=== PATIENT | female | born 1990 | race Caucasian/White ===

== ENCOUNTER 2017-02-23 09:12 | Emergency (ER) | payer SELFPAY ==
[2017-02-23 10:05] VITALS: BP 138/93
--- NOTE | 2017-02-23 10:28 | UC ---
Skin Complaint HPI - HPI Summary HPI Summary: 26 y/o female presents to the urgent care c/o hives around her body since yesterday. She doesn't recall eating anything different or being outside. She took Benadryl last night, but this morning she woke up with more hives, specially in the face. Pt denies SOB, difficulty swallowing, SOB, N/V/D, abdominal pain, chest pain. Pt is allergic to latex, PCN, sea food, but she hasn't been expose to that in the past 3 days. - History of Current Complaint Chief Complaint: UCSkin Time Seen by Provider: 02/23/17 10:20 Stated Complaint: SKIN COMPLAINT Hx Obtained From: Patient Hx Last Menstrual Period: has mirena ?: No Onset/Duration: Gradual Onset, Lasting Days, Still Present Skin Exposure Onset/Duration: Days Ago Timing: Constant Onset Severity: Mild Current Severity: Moderate Pain Intensity: 0 Pain Scale Used: 0-10 Numeric Location: Diffuse - face, neck upper chest, both arms and abdomen Character: Swelling, Pruritus, Hives Aggravating: Touch Alleviating: OTC Meds Associated Signs & Symptoms: Positive: Negative. Negative: Nausea, Vomiting, Numbness, Difficulty Breathing, Fever, Hoarseness, Throat Tightening Related History: Other: - unknown - Allergy/Home Medications Allergies/Adverse Reactions: Allergies Allergy/AdvReac Type Severity Reaction Status Date / Time Latex Allergy Rash Verified 02/23/17 09:43 Penicillin G Allergy Vomiting Verified 02/23/17 09:43 Ibuprofen AdvReac Vomiting Verified 02/23/17 09:43 Home Medications: Home Medications diPHENhydraMINE PO* [Benadryl PO 50 MG CAP*] 50 mg PO Q6H PRN 02/23/17 [History Confirmed 02/23/17] Review of Systems Constitutional: Negative Skin: Rash - Hives in B/L arms, Neck, upper chest, Eyes: Negative ENT: Negative Respiratory: Negative Cardiovascular: Negative Gastrointestinal: Negative Genitourinary: Negative Motor: Negative Neurovascular: Negative Musculoskeletal: Negative Neurological: Negative Psychological: Negative All Other Systems Reviewed And Are Negative: Yes PMH/Surg Hx/FS Hx/Imm Hx Previously Healthy: Yes Respiratory History: Asthma Other History Of: Negative For: HIV, Hepatitis B, Hepatitis C - Surgical History Surgical History: Yes Surgery Procedure, Year, and Place: wisdom teeth - Family History Known Family History: Positive: Cardiac Disease, Hypertension, Diabetes, Other - denies h allergies - Social History Occupation: Employed Full-time Lives: With Family Alcohol Use: Occasionally Substance Use Type: None Smoking Status (MU): Light Every Day Tobacco Smoker Type: Cigarettes - Immunization History Most Recent Influenza Vaccination: NOT THIS SEASON Physical Exam Triage Information Reviewed: Yes Appearance: Well-Appearing, No Pain Distress, Well-Nourished, Obese Vital Signs: Initial Vital Signs Temp 98.3 F 02/23/17 09:40 Pulse 84 02/23/17 09:40 Resp 16 02/23/17 09:40 BP 138/93 02/23/17 09:40 Pulse Ox 100 02/23/17 09:40 Vital Signs Reviewed: Yes Eye Exam: Normal Eyes: Positive: Conjunctiva Clear - PERRLA, EOMI ENT Exam: Normal ENT: Positive: Normal ENT inspection, Hearing grossly normal, Pharynx normal, TMs normal. Negative: Tonsillar swelling Dental Exam: Normal Neck exam: Normal Neck: Positive: Supple, Nontender, No Lymphadenopathy Respiratory Exam: Normal Respiratory: Positive: Chest non-tender, Lungs clear, Normal breath sounds, No respiratory distress Cardiovascular Exam: Normal Cardiovascular: Positive: RRR, No Murmur, Pulses Normal, Brisk Capillary Refill Abdominal Exam: Normal Abdomen Description: Positive: Nontender, No Organomegaly, Soft. Negative: CVA Tenderness (R), CVA Tenderness (L) Bowel Sounds: Positive: Present Musculoskeletal Exam: Normal Musculoskeletal: Positive: Strength Intact, ROM Intact, No Edema Neurological Exam: Normal Psychological Exam: Normal Skin: Positive: rashes - Positive B/L arms with multiple erythematous patches rasied and non tender to palpation, similar hives in the neck, in the face aorund the forehead Course/Dx - Course Course Of Treatment: 26 y/o female presents to the urgent care c/o hives around her body since yesterday. She doesn't recall eating anything different or being outside. She took Benadryl last night, but this morning she woke up with more hives, specially in the face. Pt denies SOB, difficulty swallowing, SOB, N/V/D, abdominal pain, chest pain. Pt is allergic to latex, PCN, sea food, but she hasn't been expose to that in the past 3 days.Hx obtained. Pt with an allergic reaction to unknown source. Pt given Prednisone 60mg PO and Benadryl IM inj. to alleviate symptoms. Rx Prednisone taper dose, benadryl PO, Ranitidine PO to protect GI. Calamide lotion to alleviate symptoms. Advised if not improvement to returnt to the urgetn care or f/u with PCP. Pt understood and agreed - Differential Diagnoses - Skin Complaint Differential Diagnoses: Allergic Reaction, Contact Dermatitis, Drug Rash, Local Allergic Reaction, Tick Born Illness, Urticaria - Diagnoses Provider Diagnoses: 1- allergic reaction to unknown source Discharge - Discharge Plan Condition: Stable Disposition: HOME Prescriptions: Calamine/Pramoxine LOTION* [Caladryl LOTION*] 1 applic .SEE ORDER TID #1 btl Ranitidine TAB (NF) [Zantac TAB (NF)] 150 mg PO BID #10 tab diPHENhydraMINE PO* [Benadryl PO 25 MG TAB*] 25 mg PO Q6H PRN #20 tab PRN Reason: Pruritis predniSONE TAB* [Deltasone TAB*] 20 mg PO DAILY #8 tab Patient Education Materials: Acute Rash (ED) Forms: *Work Release Referrals: SAJI Sánchez [Primary Care Provider] - 3 Days Additional Instructions: 1- Please take and apply medications as directed. 2- If you feel SOB, difficulty swallowing please go immediately to the ER for further treatment 3- If rash not improving in 2-3 days please return to the urgent care or f/u with your PCP
[2017-02-23] MEDS ORDERED: diPHENhydraMINE PO* 25 MG PO ONE (10:29)
[2017-02-23] MEDS ORDERED: predniSONE TAB* 20 MG PO ONE (10:29)
== END 2017-02-23 10:45 | disposition home or self-care (01) ==
LOC: UCCORT 09:12
DX: L50.9 Urticaria, unspecified (principal); F17.210 Nicotine dependence, cigarettes, uncomplicated; Z88.6 Allergy status to analgesic agent; Z88.0 Allergy status to penicillin; Z91.040 Latex allergy status
CPT/HCPCS: 99212; A9270-GY; G0463; J7512

== ENCOUNTER 2017-05-13 09:25 | Emergency (ER) | payer OTHER ==
[2017-05-13 09:44] VITALS: BP 143/85
--- NOTE | 2017-05-13 09:58 | UC ---
Throat Pain/Nasal Jeremiah HPI - HPI Summary HPI Summary: SORE THROAT X 3 DAYS + NASAL CONGESTION , COUGH , PND FEVER THIS MORNING - History of Current Complaint Chief Complaint: UCRespiratory Stated Complaint: FEVER COUGH SORE THROAT Time Seen by Provider: 05/13/17 09:53 Hx Obtained From: Patient Hx Last Menstrual Period: unknown, mirena ?: No Onset/Duration: Gradual Onset, Lasting Days - 3, Still Present Severity: Moderate Cough: Nonproductive Associated Signs & Symptoms: Positive: Nasal Discharge. Negative: Dysphagia, FB Sensation, Drooling, Wheezing, Hoarseness, Sinus Discomfort, Fever - Allergies/Home Medications Allergies/Adverse Reactions: Allergies Allergy/AdvReac Type Severity Reaction Status Date / Time Latex Allergy Rash Verified 05/13/17 09:44 Penicillin G Allergy Vomiting Verified 05/13/17 09:44 Ibuprofen AdvReac Vomiting Verified 05/13/17 09:44 PMH/Surg Hx/FS Hx/Imm Hx Previously Healthy: Yes Other History Of: Negative For: HIV, Hepatitis B, Hepatitis C - Surgical History Surgical History: None Surgery Procedure, Year, and Place: wisdom teeth - Family History Known Family History: Positive: Cardiac Disease, Hypertension, Diabetes, Other - denies h allergies - Social History Alcohol Use: Occasionally Substance Use Type: None Smoking Status (MU): Light Every Day Tobacco Smoker Type: Cigarettes Amount Used/How Often: 3 cigs per day - Immunization History Most Recent Influenza Vaccination: no 2017 Review of Systems Constitutional: Fever, Chills, Fatigue Skin: Negative Eyes: Negative ENT: Sore Throat, Nasal Discharge Respiratory: Cough Cardiovascular: Negative Is Patient Immunocompromised?: No All Other Systems Reviewed And Are Negative: Yes Physical Exam Triage Information Reviewed: Yes Appearance: Well-Appearing, No Pain Distress, Obese Vital Signs: Initial Vital Signs Temp 98.7 F 05/13/17 09:40 Pulse 84 05/13/17 09:40 Resp 18 05/13/17 09:40 BP 143/85 05/13/17 09:40 Pulse Ox 100 05/13/17 09:40 Vital Signs Reviewed: Yes Eyes: Positive: Conjunctiva Clear ENT: Positive: Normal ENT inspection, Hearing grossly normal, Pharyngeal erythema, Nasal congestion, Nasal drainage, TMs normal Neck: Positive: Supple, Nontender, No Lymphadenopathy Respiratory: Positive: Chest non-tender, Lungs clear, Normal breath sounds, No respiratory distress Cardiovascular: Positive: RRR, No Murmur, Pulses Normal Abdominal Exam: Normal Throat Pain/Nasal Course/Dx - Differential Dx/Diagnosis Provider Diagnoses: URI Discharge - Discharge Plan Condition: Stable Disposition: HOME Patient Education Materials: Upper Respiratory Infection (ED) Forms: *Work Release Referrals: SAJI Sánchez [Primary Care Provider] - If Needed
== END 2017-05-13 10:00 | disposition home or self-care (01) ==
LOC: UCCORT 09:25
DX: J06.9 Acute upper respiratory infection, unspecified (principal); F17.210 Nicotine dependence, cigarettes, uncomplicated; Z88.0 Allergy status to penicillin; Z88.6 Allergy status to analgesic agent; Z91.040 Latex allergy status
CPT/HCPCS: 99211; G0463

== ENCOUNTER 2019-12-30 11:29 | Inpatient (IN) ==
[2019-12-30] MEDS ORDERED: Lactated Ringers 1000 ml BAG 1,000 ML IV ONE ×2 (12:26→21:20)
[2019-12-30] MEDS ORDERED: Lactated Ringers 1000 ml BAG 1,000 ML IV SCH ×2 (13:00→22:00)
[2019-12-30 13:25] LABS: ABS Eosinophils 0.2 10^3/ul (0-0.6); ABS Lymphocytes 1.8 10^3/ul (1.0-4.8); ABS Monocytes 0.6 10^3/ul (0-0.8); Eosinophil % 1.4 %; Hematocrit 34 % (35-47); Lymphocyte % 13.9 %; Mean Corpuscular HGB Conc 35 g/dL (31-36); Mean Corpuscular Hemoglobin 32 pg (27-31); Mean Corpuscular Volume 91 fL (80-97); Platelet Count 161 10^3/uL (150-450); Red Blood Count 3.76 10^6 /uL (3.70-4.87); Red Cell Distribution Width 13 % (10-15); White Blood Count 12.9 10^3/uL (3.5-10.8)
[2019-12-30 13:37] LABS: Albumin 3.3 g/dL (3.2-5.2); Albumin/Globulin Ratio 1.2 (1-3); BUN/Creatinine Ratio 13.2 (8-20); Calcium 8.6 mg/dL (8.6-10.3); EGFR African American 163.9 (>60); EGFR Non-African American 135.4 (>60); Globulin 2.8 g/dL (2-4); Potassium 3.6 mmol/L (3.5-5.0); Total Bilirubin 0.5 mg/dL (0.2-1.0); Total Protein 6.1 g/dL (6.4-8.9)
[2019-12-30 13:45] LABS: Urine Benzodiazepine Screen None Detected (None Detect); Urine Opiates Screen None Detected (None Detect)
[2019-12-30] MEDS ORDERED: Terbutaline INJ 1 MG/ML 1 ml VIAL ONE (15:01)
[2019-12-30] MEDS ORDERED: OBEPIDURAL 250 ML EPIDURAL ONE (19:17)
[2019-12-30] MEDS: Vancomycin(*) 1,000 MG in NS 0.9% 250 ml 250 ML IVPB SCH (19:33)
[2019-12-30] MEDS ORDERED: Sodium Citrate/Citric Acid LIQ 15 ML UDC PO PRN (21:20)
[2019-12-30] MEDS ORDERED: Phenylephrine 40 mcg/mL 10mL (400mcg) SYRINGE IV PUSH PRN ×2 (21:20)
[2019-12-31] MEDS ORDERED: fentaNYL 100 mcg/2 ml 50 MCG/ML VIAL IV SLOW PU ONE (03:00)
[2019-12-31] MEDS ORDERED: Ondansetron 4 mg VIAL 2 MG/ML 2 ml VIAL ONE (03:03)
[2019-12-31] MEDS ORDERED: fentaNYL 100 mcg/2 ml 50 MCG/ML VIAL ONE (03:04)
[2019-12-31] MEDS: Ondansetron 4 mg VIAL 2 MG/ML 2 ml VIAL IV SCH (03:08)
[2019-12-31] MEDS ORDERED: Oxytocin in LR 20 UNITS/1,000 ML BAG IVPB ONE (03:31)
[2019-12-31] MEDS ORDERED: Dibucaine 1% OINT 28.35 GM TUBE PR PRN (04:09)
[2019-12-31] MEDS ORDERED: Witch Hazel PAD JAR TOPICAL PRN (04:09)
[2019-12-31] MEDS ORDERED: Lactated Ringers 1000 ml BAG 1,000 ML IV SCH (05:00)
[2019-12-31] MEDS: OBEPIDURAL 250 ML EPIDURAL SCH (19:57)
[2019-12-31] MEDS: Vancomycin(*) 1,000 MG in NS 0.9% 250 ml 250 ML IVPB SCH ×2 (19:57→19:58)
[2020-01-01] MEDS ORDERED: Measles, Mumps,Rubella VACC 0.5 ML/VIAL SUBCUT ONE (06:05)
[2020-01-01] MEDS: Ondansetron 4 mg VIAL 2 MG/ML 2 ml VIAL IV SCH (07:00)
[2020-01-01] MEDS: OBEPIDURAL 250 ML EPIDURAL SCH (07:15)
[2020-01-01 08:42] LABS: ABS Eosinophils 0.2 10^3/ul (0-0.6); ABS Lymphocytes 2.1 10^3/ul (1.0-4.8); ABS Monocytes 0.8 10^3/ul (0-0.8); Eosinophil % 1.2 %; Hematocrit 34 % (35-47); Lymphocyte % 14.9 %; Mean Corpuscular HGB Conc 35 g/dL (31-36); Mean Corpuscular Hemoglobin 32 pg (27-31); Mean Corpuscular Volume 92 fL (80-97); Mean Platelet Volume 9.4 fL (7.4-10.4); Nucleated Red Blood Cells % 0.1; Platelet Count 160 10^3/uL (150-450); Red Blood Count 3.75 10^6 /uL (3.70-4.87); Red Cell Distribution Width 13 % (10-15); White Blood Count 14.4 10^3/uL (3.5-10.8)
[2020-01-02 08:28] VITALS: BP 147/72
== END 2020-01-02 14:29 | disposition home or self-care (01) | DRG 560 ==
LOC: MCHOBOUT 11:29 → MCHOB 12:26
PROVIDERS: ADMIT Obstetrics & Gynecology; ATTEND Obstetrics & Gynecology

== ENCOUNTER 2021-12-26 08:03 | Inpatient (IN) ==
[2021-12-26] MEDS ORDERED: Lactated Ringers 1000 ml BAG 1,000 ML IV ONE (08:33)
[2021-12-26] MEDS ORDERED: Buffered Lidocaine 1% SYRIN 1 ml INTRADERM ONE (08:33)
[2021-12-26] MEDS ORDERED: miSOPROStol 100 mcg TAB VAGINAL ONE ×2 (08:39→14:33)
[2021-12-26 08:49] LABS: Urine Benzodiazepine Screen None Detected (None Detect); Urine Opiates Screen None Detected (None Detect)
[2021-12-26] MEDS ORDERED: Lactated Ringers 1000 ml BAG 1,000 ML IV SCH (09:00)
[2021-12-26 10:18] LABS: ABS Eosinophils 0.2 10^3/ul (0-0.6); ABS Lymphocytes 2.1 10^3/ul (1.0-4.8); ABS Monocytes 0.7 10^3/ul (0-0.8); Hematocrit 34 % (35-47); Hemoglobin 11.9 g/dL (12.0-16.0); Lymphocyte % 13.7 %; Mean Corpuscular HGB Conc 35 g/dL (31-36); Mean Corpuscular Hemoglobin 32 pg (27-31); Mean Corpuscular Volume 92 fL (80-97); Mean Platelet Volume 8.8 fL (7.4-10.4); Platelet Count 168 10^3/uL (150-450); Red Blood Count 3.76 10^6 /uL (3.70-4.87); Red Cell Distribution Width 13 % (10-15)
[2021-12-26] MEDS: Vancomycin 1,000 MG in NS 0.9% 250 ml 250 ML IVPB SCH ×2 (10:19→22:24)
[2021-12-26 11:17] LABS: HIV 4th Generation Nonreactive (Nonreactive)
[2021-12-26] MEDS ORDERED: Oxytocin in LR 20 UNITS/1,000 ML BAG IVPB SCH (20:00)
[2021-12-27] MEDS ORDERED: Nalbuphine 10 MG/ML 1 ML VIAL IV ONE (00:16)
[2021-12-27] MEDS ORDERED: Promethazine INJ(RESTRICTED) 25 MG/ML 1 ml VIAL IV PRN (00:16)
[2021-12-27] MEDS ORDERED: Ondansetron 4 mg VIAL 2 MG/ML 2 ml VIAL IV PRN (01:59)
[2021-12-27] MEDS ORDERED: Glycerin ADULT 2.4 gm SUPP PR PRN (04:11)
[2021-12-27] MEDS ORDERED: Oxytocin in LR 20 UNITS/1,000 ML BAG IVPB SCH (05:00)
[2021-12-27] MEDS ORDERED: Lactated Ringers 1000 ml BAG 1,000 ML IV SCH (05:00)
[2021-12-27] MEDS ORDERED: Lidocaine 1% MPF 5 ML VIAL ONE (06:17)
[2021-12-27] MEDS ORDERED: Tetan/Diph/Pertus SYR(Tdap) 0.5 ML SYR(BOOSTRIX) use SYR contains LATEX IM ONE (09:00)
[2021-12-27] MEDS ORDERED: Measles, Mumps,Rubella VACC 0.5 ML/VIAL SUBCUT ONE (09:00)
[2021-12-27] MEDS: Witch Hazel PAD JAR TOPICAL PRN (21:13)
[2021-12-27] MEDS: Dibucaine 1% OINT 28.35 GM TUBE PR PRN (21:14)
[2021-12-28 07:18] LABS: ABS Eosinophils 0.2 10^3/ul (0-0.6); ABS Lymphocytes 2.6 10^3/ul (1.0-4.8); ABS Monocytes 0.6 10^3/ul (0-0.8); ABS Neutrophils 7.1 10^3/ul (1.5-7.7); Eosinophil % 1.5 %; Hematocrit 32 % (35-47); Hemoglobin 11.1 g/dL (12.0-16.0); Mean Corpuscular HGB Conc 35 g/dL (31-36); Mean Corpuscular Hemoglobin 32 pg (27-31); Mean Corpuscular Volume 92 fL (80-97); Mean Platelet Volume 8.5 fL (7.4-10.4); Platelet Count 148 10^3/uL (150-450); Red Blood Count 3.48 10^6 /uL (3.70-4.87); Red Cell Distribution Width 13 % (10-15); White Blood Count 10.5 10^3/uL (3.5-10.8)
[2021-12-28] MEDS: Witch Hazel PAD JAR TOPICAL PRN (21:19)
[2021-12-28] MEDS: Dibucaine 1% OINT 28.35 GM TUBE PR PRN (21:19)
[2021-12-29] MEDS: Witch Hazel PAD JAR TOPICAL PRN (09:45)
[2021-12-29] MEDS: Dibucaine 1% OINT 28.35 GM TUBE PR PRN (09:45)
[2021-12-29 15:13] VITALS: BP 147/71
== END 2021-12-29 15:00 | disposition home or self-care (01) | DRG 560 ==
LOC: MCHOBOUT 08:03 → MCHOB 08:55
PROVIDERS: ADMIT Obstetrics & Gynecology; ATTEND Obstetrics & Gynecology